=== PATIENT | female | born 1990 | race Caucasian/White ===

== ENCOUNTER 2017-06-18 21:03 | Inpatient (IN) | payer OTHER ==
[~2017-06-18] VITALS: Ht 162.6 cm; Wt 73.5 kg
[2017-06-18] MEDS ORDERED: LACTATED RINGER'S 1000ML 1,000 ML IV PRN (21:41)
[2017-06-18] MEDS ORDERED: PATIENT'S ALLERGY INFO NEEDS ENTERED SCH (22:00)
[2017-06-18 22:14] LABS: HEMOGLOBIN 13.2 g/dL (12.0-16.0); MEAN CELL VOLUME 90.7 fL (80-100); MEAN CORPUSCULAR HEMOGLOBIN 31.5 pg (25-34); MEAN CORPUSCULAR HGB CONC 34.7 g/dl (32-36); MEAN PLATELET VOLUME 10.8 fL (7.4-10.4); PLATELET COUNT 192 K/uL (130-400); RED CELL DISTRIBUTION WIDTH CV 13.6 % (11.5-14.5); RED CELL DISTRIBUTION WIDTH SD 44.6 fL (36.4-46.3); WHITE BLOOD COUNT 12.77 K/uL (4.8-10.8)
[2017-06-18] MEDS ORDERED: CHOL1000 PO (22:28)
[2017-06-18] MEDS ORDERED: PRENTAB26 PO (22:28)
[2017-06-18 22:30] VITALS: Ht 162.6 cm; Wt 73.5 kg
[2017-06-18 22:32] LABS: ALBUMIN 2.9 gm/dl (3.4-5.0); CALCIUM 8.9 mg/dl (8.5-10.1); CREATININE 0.99 mg/dl (0.60-1.20)
[2017-06-18 22:34] LABS: TOTAL PROTEIN 6.4 gm/dl (6.4-8.2)
[2017-06-18] MEDS ORDERED: LACTATED RINGER'S 1000ML 500 ML IV PRN (23:35)
[2017-06-18] MEDS ORDERED: OXYTOCIN 30 UNITS/500ML NSS IV PRN (23:45)
[2017-06-19] VITALS (7 sets, daily range): BP systolic 135–152; BP diastolic 81–91; PULSE 69; TEMP 36.7–36.8; O2SAT 96–97
[2017-06-19] MEDS: LACTATED RINGER'S 1000ML 1,000 ML IV SCH ×3 (02:16→12:48)
[2017-06-19] MEDS ORDERED: BUPIVACAINE 0.25% 30 ML VIAL ONE (03:32)
[2017-06-19] MEDS ORDERED: EpHEDrine SULFATE INJ 50 MG/ML AMP ONE (03:32)
[2017-06-19] MEDS ORDERED: FENTANYL 2MCG/ML ROPIV 1.25MG/ML 100ML BAG EPI ONE (03:33)
[2017-06-19] MEDS ORDERED: FENTANYL CITRATE INJ 50 MCG/1 ML 2 ML VIAL ONE (03:33)
[2017-06-19] MEDS ORDERED: LACTATED RINGER'S 1000ML 500 ML IV PRN (04:10)
[2017-06-19] MEDS ORDERED: NALOXONE HCL INJ 1 MG in SODIUM CHLORIDE 0.9% 1000ML 1,000 ML IV PRN ×4 (04:10)
[2017-06-19] MEDS ORDERED: PROMETHAZINE HCL INJ 25 MG in SODIUM CHLORIDE 0.9% 50ML 50 ML IV PRN (04:15)
[2017-06-19] MEDS ORDERED: NALBUPHINE HCL INJ 10 MG/ML AMP IV PRN (04:15)
[2017-06-19] MEDS ORDERED: EpHEDrine SULFATE INJ 50 MG/ML AMP IV PRN (04:15)
[2017-06-19] MEDS ORDERED: DiphenhydrAMINE HCL 50 MG/ML VIAL IV PRN (04:15)
[2017-06-19] MEDS ORDERED: ONDANSETRON INJ 2 MG/ML 2 ML VIAL IV PRN (04:15)
[2017-06-19] MEDS ORDERED: NALOXONE HCL INJ 0.4 MG/1 ML VIAL/CARP IV PRN (04:15)
[2017-06-19] MEDS ORDERED: CEFOXITIN IV 2,000 MG in DEXTROSE 5% 50ML 50 ML IV SCH (06:00)
[2017-06-19] MEDS: FENTANYL 2MCG/ML ROPIV 1.25MG/ML 100ML BAG EPI PRN ×2 (06:59→10:33)
[2017-06-19] MEDS ORDERED: OXYTOCIN INJ 10 UNITS/ML VIAL ONE ×6 (14:26→15:08)
[2017-06-19] MEDS ORDERED: LIDOCAINE/EPINEPHRINE 2% 1:200,000 20 ML SDV ONE (14:26)
[2017-06-19] MEDS ORDERED: MoRPHine SULFATE PF 1 MG/ML 10 ML AMP/VIAL ONE (14:27)
[2017-06-19] MEDS ORDERED: CITRIC ACID/SODIUM CITRATE 15 ML UDC PO ONE (14:30)
[2017-06-19] MEDS ORDERED: LACTATED RINGER'S 1000ML 1,000 ML IV SCH (14:30)
[2017-06-19] MEDS ORDERED: MoRPHine SULFATE PF 1 MG/ML 10 ML AMP/VIAL EPI PRN (15:00)
[2017-06-19] MEDS ORDERED: OXYTOCIN INJ 10 UNITS/ML VIAL IM ONE (15:04)
[2017-06-19] MEDS ORDERED: ONDANSETRON INJ 2 MG/ML 2 ML VIAL ONE (15:09)
[2017-06-19] MEDS ORDERED: METOCLOPRAMIDE HCL INJ 5 MG/ML 2 ML VIAL ONE (15:09)
[2017-06-19] MEDS ORDERED: MISOPROSTOL 200 MCG TAB ONE (15:43)
--- NOTE | 2017-06-19 15:57 | Anesthesiology Progress Note ---
Anesthesia Post Op Note Date & Time Jun 19, 2017 at 15:56 Vital Signs Pain Intensity: 1.0 Notes Mental Status: alert / awake / arousable, participated in evaluation Pt Amnestic to Procedure: Yes Nausea / Vomiting: adequately controlled Pain: adequately controlled Airway Patency, RR, SpO2: stable & adequate BP & HR: stable & adequate Hydration State: stable & adequate Neuraxial Anesthesia: was administered, sensory block is resolving Anesthetic Complications: no major complications apparent
--- NOTE | 2017-06-19 15:58 | Anesthesia Procedure Note ---
Anesthesia Epidural Removal Nt Date & Time Jun 19, 2017 at 15:58 Vital Signs Pain Intensity: 1.0 Notes Mental Status: alert / awake / arousable, participated in evaluation Nausea / Vomiting: adequately controlled Pain: adequately controlled Airway Patency, RR, SpO2: stable & adequate BP & HR: stable & adequate Hydration State: stable & adequate Neuraxial Anesthesia: was administered Anesthetic Complications: no major complications apparent, pt satisfied with anesthetic care Epidural: removed without complications, with tip intact
[2017-06-19] MEDS ORDERED: CONTINUE MEDICATION ONE (16:00)
[2017-06-19] MEDS ORDERED: LORAZEPAM 1 MG TAB PO PRN (16:00)
[2017-06-19] MEDS ORDERED: NO NARCOTICS OR SEDATIVES SCH (16:00)
[2017-06-19] MEDS ORDERED: DC INTRASPINAL MORPHINE PRN (16:00)
[2017-06-19] MEDS ORDERED: MoRPHine SULFATE 2 MG/ML CARP IV PRN (16:00)
--- NOTE | 2017-06-19 16:13 | [facility] Post Operative Brief Note ---
Immediate Operative Summary Operative Date Jun 19, 2017. Pre-Operative Diagnosis Failure to descend. Post-Operative Diagnosis Same Procedure(s) Performed Primary low transverse section. Surgeon Dr. Sahni Nursing Services Manager Surgeon(s) Dr. Barroso Estimated Blood Loss 700 Findings Consistent with Post-Op Diagnosis dictated Fluids (cc crystalloids) 1600 Specimens A. Placenta - Exam B. Cord blood C. Arterial and venous cord blood Drains None Anesthesia Type L&D Only EPID Exist Complication(s) none Disposition Disposition: L&D ( )
[2017-06-19] MEDS ORDERED: LANOLIN OINT EXT PRN (16:15)
[2017-06-19] MEDS ORDERED: SUPERCREAM 0.870 % 15GM JAR EXT PRN (16:15)
[2017-06-19] MEDS ORDERED: BENZOCAINE 20% AER SPR 82.5 GM CAN EXT PRN (16:15)
[2017-06-19] MEDS ORDERED: DC PCA PRN (16:15)
[2017-06-19] MEDS ORDERED: HYDROCORTISONE ACETATE 25 MG SUPP PR PRN (16:15)
[2017-06-19] MEDS ORDERED: MAGNESIUM HYDROXIDE SUSP 30 ML UDC PO PRN (16:15)
[2017-06-19] MEDS ORDERED: MISOPROSTOL 200 MCG TAB PO STA (16:24)
[2017-06-19] MEDS: SIMETHICONE 80 MG CHEW PO SCH ×2 (16:25→20:00)
[2017-06-19] MEDS: KETOROLAC TROMETHAMINE 30 MG/ML VIAL IV. PRN ×2 (16:29→23:48)
[2017-06-19] MEDS: OXYTOCIN INJ 20 UNITS in LACTATED RINGER'S 1000ML 1,000 ML IV SCH (17:16)
[2017-06-19] MEDS: DOCUSATE SODIUM 100 MG CAP PO SCH (20:00)
--- NOTE | 2017-06-19 20:09 | OPERATIVE REPORT ---
DATE OF OPERATION: 06/19/2017 SECTION NOTE INDICATION FOR PROCEDURE: This is a 27-year-old G1, P0 who presented to labor and delivery after spontaneous rupture of membrane at 1900 hours on 06/18/2017. The patient was admitted and eventually started on Pitocin for augmentation. She went on to be fully dilated at around 1000 hours on 06/19/2017. Upon vaginal exam, scalp was at a high station. She was made to labor down. She labored down and began to push. She pushed for over 3 hours and had an arrest of descent at 2+ station. heart rate changed from category 1 to category 2 with occasional decelerations. Decision was therefore made to perform section. The patient agreed, consent was obtained and patient was sent to the operating room where she underwent a primary section. PREOPERATIVE DIAGNOSES: 1. Failure to descend. 2. Cephalopelvic disproportion. 3. Poor testing. POSTOPERATIVE DIAGNOSES: Same. PROCEDURE: Primary low transverse section. SURGEON: Dr. aShni. SUPERVISOR STAGE CARPENTRY: Dr. Barroso. ESTIMATED BLOOD LOSS: 300 mL. URINE OUTPUT: Around 50 mL clear urine at end of the procedure. INTRAVENOUS FLUIDS: 1600 mL. FINDINGS: The uterus, tubes, and ovary appeared grossly normal. The pelvis was unremarkable. was in occiput posterior presentation. Infant's head was wedged deep in the pelvis. There was no nuchal cord, there was terminal meconium; however. The rest of the abdominal and pelvic exam was unremarkable. SPECIMEN: 1. Placenta. 2. Cord gas. 3. Cord blood. DRAINS: Perez catheter. ANESTHESIA: Epidural. COMPLICATIONS: None. DISPOSITION: Stable to recovery room. DESCRIPTION OF PROCEDURE: The patient was taken to the operating where she was prepped and draped in normal sterile fashion in dorsal lithotomy position. After a time-out was called, a Pfannenstiel incision was made with a scalpel and carried down to the fascia. Fascia was incised in the midline and extended laterally on both sides. The rectus abdominus muscle was sharply dissected off the fascia. Peritoneum was identified and entered sharply. Once inside the abdomen, an Juan Luis retractor was placed in the abdomen for retraction. The vesicouterine peritoneum was sharply dissected off the lower segment of the uterus. A low transverse incision was made on the uterus and extended laterally on both sides using bandage scissors. 's head was wedged deep in the pelvis, this was reduced and the infant delivered. There was no nuchal cord. There was terminal meconium. Infant was delivered. Cord was clamped and cut. was handed over to the awaiting pediatric team. 's weight and Apgars in the pediatric records. Cord blood and cord gas were obtained. Placenta was manually removed. The uterus was exteriorized and cleared of all clots and debris. Uterus was closed in layers using 0 Vicryl, this was closed in 2 layers. There was good hemostasis at end of the repair. Copious amount of irrigation was used to irrigate the abdomen and pelvis at this point. The uterus was returned into the abdominal cavity and once again inspection of the uterine incision site showed good hemostasis. The Juan Luis retractor was removed and the peritoneum closed in a running fashion using plain suture. Rectus abdominis muscle was reapproximated using plain suture in a [id number] fashion. The fascia was closed in a running fashion using Vicryl stitch. SubQ space was closed with plain suture and skin was closed with 4-0 Monocryl. All instruments were removed from the abdomen and accounted for x2. There was good hemostasis at time of closure. The patient was sent to recovery in stable condition. I attest to the content of the Intraoperative Record and any orders documented therein. Any exception s are noted below.
[2017-06-20] VITALS (14 sets, daily range): BP systolic 122–136; BP diastolic 75–84; PULSE 71–102; TEMP 36.6–36.9; O2SAT 95–99
[2017-06-20] MEDS: OXYTOCIN INJ 20 UNITS in LACTATED RINGER'S 1000ML 1,000 ML IV SCH (02:51)
[2017-06-20] MEDS: PRENATAL VITAMIN TAB PO SCH (08:00)
[2017-06-20] MEDS: DOCUSATE SODIUM 100 MG CAP PO SCH ×2 (08:01→19:42)
[2017-06-20] MEDS: FERROUS SULFATE 325 MG TAB PO SCH (08:01)
[2017-06-20] MEDS: SIMETHICONE 80 MG CHEW PO SCH ×4 (08:01→19:42)
[2017-06-20] MEDS: KETOROLAC TROMETHAMINE 30 MG/ML VIAL IV. PRN (08:02)
[2017-06-20 08:48] LABS: BASO % 0.1 %; BASO ABS # 0.02 K/uL (0-0.2); EOS % 0.6 %; EOS ABS # 0.12 K/uL (0-0.5); HEMATOCRIT 34.3 % (37-47); HEMOGLOBIN 11.7 g/dL (12.0-16.0); LYMPH % 9.2 %; LYMPH ABS # 1.75 K/uL (1.2-3.4); MEAN CELL VOLUME 91.5 fL (80-100); MEAN CORPUSCULAR HEMOGLOBIN 31.2 pg (25-34); MEAN CORPUSCULAR HGB CONC 34.1 g/dl (32-36); MEAN PLATELET VOLUME 10.6 fL (7.4-10.4); MONO ABS # 1.32 K/uL (0.11-0.59); NEUT % 82.6 %; NEUT ABS # 15.66 K/uL (1.4-6.5); PLATELET COUNT 150 K/uL (130-400); RED CELL DISTRIBUTION WIDTH CV 13.7 % (11.5-14.5); RED CELL DISTRIBUTION WIDTH SD 45.1 fL (36.4-46.3); WHITE BLOOD COUNT 18.97 K/uL (4.8-10.8)
--- NOTE | 2017-06-20 09:40 | Surgery Progress Note ---
Surgery Progress Note Date of Service Jun 20, 2017. Subjective Post OP Day: 1 + feeling well, + ambulating, + flatus, + pain controlled, + diet Objective Vital Signs: Date Time Temp Pulse Resp B/P (MAP) Pulse Ox O2 Delivery O2 Flow Rate FiO2 06/20/17 06:15 18 96 06/20/17 05:15 18 97 06/20/17 04:45 36.8 72 18 132/78 (96) 97 Room Air 06/20/17 04:15 18 96 06/20/17 03:15 18 97 06/20/17 02:15 16 96 06/20/17 00:15 18 97 06/19/17 23:45 97 Room Air 06/19/17 23:45 36.8 69 18 152/91 (111) 97 Room Air 06/19/17 23:15 18 96 06/19/17 22:15 18 97 06/19/17 21:15 16 97 06/19/17 20:15 18 96 06/19/17 19:15 18 96 06/19/17 19:05 96 Room Air 06/19/17 19:05 36.7 69 18 135/81 (99) 96 Room Air Abdomen: non tender, non distended, soft Incision(s): clean, dry, intact Extremities: non-tender, normal inspection, no pedal edema Laboratory Results: Results Past 24 Hours Test 06/20/17 08:28 Range/Units White Blood Count 18.97 4.8-10.8 K/uL Red Blood Count 3.75 4.2-5.4 M/uL Hemoglobin 11.7 12.0-16.0 g/dL Hematocrit 34.3 37-47 % Mean Corpuscular Volume 91.5 80-100 fL Mean Corpuscular Hemoglobin 31.2 25-34 pg Mean Corpuscular Hemoglobin Concent 34.1 32-36 g/dl Platelet Count 150 130-400 K/uL Mean Platelet Volume 10.6 7.4-10.4 fL Neutrophils (%) (Auto) 82.6 % Lymphocytes (%) (Auto) 9.2 % Monocytes (%) (Auto) 7.0 % Eosinophils (%) (Auto) 0.6 % Basophils (%) (Auto) 0.1 % Neutrophils # (Auto) 15.66 1.4-6.5 K/uL Lymphocytes # (Auto) 1.75 1.2-3.4 K/uL Monocytes # (Auto) 1.32 0.11-0.59 K/uL Eosinophils # (Auto) 0.12 0-0.5 K/uL Basophils # (Auto) 0.02 0-0.2 K/uL RDW Standard Deviation 45.1 36.4-46.3 fL RDW Coefficient of Variation 13.7 11.5-14.5 % Immature Granulocyte % (Auto) 0.5 % Immature Granulocyte # (Auto) 0.10 0.00-0.02 K/uL Assessment & Plan regular diet ambulate POD#1 may shower and increase activity
[2017-06-20] MEDS ORDERED: OXYCODONE/ACETAMINOPHEN 5-325 TAB PO PRN (11:00)
[2017-06-20] MEDS ORDERED: DiphenhydrAMINE HCL 50 MG/ML VIAL IV PRN (11:00)
[2017-06-20] MEDS ORDERED: ONDANSETRON INJ 2 MG/ML 2 ML VIAL IV PRN (11:00)
[2017-06-20] MEDS ORDERED: PROMETHAZINE HCL INJ 25 MG in SODIUM CHLORIDE 0.9% 50ML 50 ML IV PRN (11:00)
[2017-06-20] MEDS ORDERED: ZOLPIDEM TARTRATE 5 MG TAB PO PRN (11:00)
[2017-06-20] MEDS: OXYCODONE/ACETAMINOPHEN 5-325 TAB PO PRN ×2 (13:26→19:02)
[2017-06-20] MEDS: IBUPROFEN 600 MG TAB PO PRN ×2 (13:26→19:02)
[2017-06-20] MEDS ORDERED: BISACODYL 5 MG TABEC PO ONE (22:00)
[2017-06-21] VITALS: BP 129/80; PULSE 72; TEMP 36.8
[2017-06-21] MEDS: IBUPROFEN 600 MG TAB PO PRN ×5 (00:08→20:42)
[2017-06-21] MEDS: OXYCODONE/ACETAMINOPHEN 5-325 TAB PO PRN ×5 (00:08→20:42)
[2017-06-21 07:08] LABS: HEMATOCRIT 30.3 % (37-47); HEMOGLOBIN 10.1 g/dL (12.0-16.0)
[2017-06-21] MEDS: PRENATAL VITAMIN TAB PO SCH (08:36)
[2017-06-21] MEDS: DOCUSATE SODIUM 100 MG CAP PO SCH ×2 (08:36→20:42)
[2017-06-21] MEDS: SIMETHICONE 80 MG CHEW PO SCH ×4 (08:36→20:42)
[2017-06-21] MEDS: FERROUS SULFATE 325 MG TAB PO SCH (08:36)
[2017-06-21 08:40] VITALS: BP 132/83; PULSE 82; TEMP 36.5
--- NOTE | 2017-06-21 09:18 | Surgery Progress Note ---
Surgery Progress Note Date of Service Jun 21, 2017. Subjective Post OP Day: 2 + feeling well, + ambulating, + flatus, + pain controlled, + diet (tolerating PO food and meds), No complaints, No chest pain, No SOB, No bowel movement, No using UNMANNED EQUIPMENT OPERATOR, No nausea, No vomiting Objective Vital Signs: Date Time Temp Pulse Resp B/P (MAP) Pulse Ox O2 Delivery O2 Flow Rate FiO2 06/21/17 00:00 Room Air 06/21/17 00:00 36.8 72 18 129/80 (96) Room Air 06/20/17 15:30 99 Room Air 06/20/17 15:30 36.9 94 18 122/81 (95) 99 Room Air 06/20/17 11:10 36.8 102 18 127/75 (92) 97 Room Air 06/20/17 10:15 16 96 General Appearance: WD/WN, no apparent distress Head: normocephalic, atraumatic Neck: supple, no adenopathy, thyroid normal, no JVD, no carotid bruits, trachea midline Respiratory/Chest: chest non-tender, lungs clear, normal breath sounds, no respiratory distress, no accessory muscle use Cardiovascular: regular rate, rhythm, no edema, no gallop, no JVD, no murmur Abdomen: normal bowel sounds, non tender, non distended, soft, no organomegaly , no pulsatile mass Incision(s): clean, dry, intact, no erythema, no drainage Laboratory Results: Results Past 24 Hours Test 06/21/17 06:22 Range/Units Hemoglobin 10.1 12.0-16.0 g/dL Hematocrit 30.3 37-47 % Assessment & Plan c/sec day #2 pt doing well anticipate disch tomorrow
[2017-06-21 15:00] VITALS: BP 144/84; PULSE 101; TEMP 36.7
[2017-06-21] MEDS ORDERED: BISACODYL 10 MG SUPP PR PRN (16:15)
--- NOTE | 2017-06-21 19:28 | DISCHARGE SUMMARY ---
DATE OF ANTICIPATED DISCHARGE: 06/22/2017 CHIEF COMPLAINT: 1. at term. 2. Premature rupture of membranes. HISTORY OF PRESENT ILLNESS: This is a 27-year-old G1, P0, who presented to labor and delivery after spontaneous rupture of membranes at 1900 on 06/18/2017. She was admitted and eventually started on Pitocin for labor augmentation. She went on to be fully dilated at around 1000 on 06/19/2017. The patient pushed for several hours, there was no change in station. heart tracing went from category 1 to category 2. The patient, therefore, underwent primary section for poor testing as well as failure to descend. Surgery was unremarkable. The patient did well, delivered a live female , Apgars 8 and 9. Details of surgery and baby are in the respective records. The patient met all milestones in recovery. On postop day #1, the patient did well. She was able to tolerate p.o. food and meds. On postop day #2, she continued to improve. Her diet was advanced. The patient will be discharged home on the morning of 06/22/2017. PAST MEDICAL HISTORY: None. PAST SURGICAL HISTORY: The patient has had some dental surgery in the past. SOCIAL HISTORY: The patient denies tobacco, drug or alcohol use. ALLERGIES: No known drug allergies. FAMILY HISTORY: Noncontributory. REVIEW OF SYSTEMS: Negative except as dictated in the HPI. PHYSICAL EXAMINATION: VITAL SIGNS: On 06/21/2017, temperature is 36.8, pulse is 72, blood pressure is 129/80.HEART: S1, S2, regular rhythm and rate. LUNGS: Clear to auscultation bilaterally. No wheezes, crackles or rales. ABDOMEN: Nontender, nondistended, positive bowel sounds. Incision is clean, dry and intact. EXTREMITIES: No cyanosis, clubbing or edema. LABORATORY DATA: On 06/21/2017 showed hemoglobin of 10.1, hematocrit of 30.3. CONDITION ON DISCHARGE: Stable. OPERATION: Primary section. DIAGNOSIS: Postop primary section. PLAN ON DISCHARGE: The patient will be discharged home tomorrow, 06/22/2017, with instructions regarding activity, diet, followup appointment and medication.
[2017-06-21 23:35] VITALS: BP 121/80; PULSE 82; TEMP 36.6; O2SAT 98
[2017-06-22] MEDS: IBUPROFEN 600 MG TAB PO PRN ×2 (03:42→09:05)
[2017-06-22] MEDS: OXYCODONE/ACETAMINOPHEN 5-325 TAB PO PRN ×2 (03:42→09:05)
[2017-06-22 07:45] VITALS: BP 142/84; PULSE 70; TEMP 36.6
--- NOTE | 2017-06-22 08:05 | Surgery Progress Note ---
Surgery Progress Note Date of Service Jun 22, 2017. Subjective Post OP Day: 2 + feeling well, + ambulating, + flatus, + pain controlled, + diet (Tolerating Po food and Meds), No complaints, No chest pain, No SOB, No bowel movement, No using PRECISION HONER, No nausea, No vomiting Objective Vital Signs: Date Time Temp Pulse Resp B/P (MAP) Pulse Ox O2 Delivery O2 Flow Rate FiO2 06/21/17 23:35 98 Room Air 06/21/17 23:35 36.6 82 20 121/80 (94) 98 Room Air 06/21/17 15:00 36.7 101 18 144/84 (104) Room Air 06/21/17 15:00 Room Air 06/21/17 08:40 Room Air 06/21/17 08:40 36.5 82 18 132/83 (99) Room Air General Appearance: WD/WN, no apparent distress Head: normocephalic, atraumatic Neck: supple, no adenopathy, thyroid normal, no JVD, no carotid bruits, trachea midline Respiratory/Chest: chest non-tender, lungs clear, normal breath sounds, no respiratory distress, no accessory muscle use Cardiovascular: regular rate, rhythm, no edema, no gallop, no JVD, no murmur Abdomen: normal bowel sounds, non tender, non distended, soft, no organomegaly , no pulsatile mass Incision(s): clean, dry, intact, no erythema, no drainage Extremities: normal range of motion, non-tender, normal inspection, no pedal edema, no calf tenderness, normal capillary refill, pelvis stable Assessment & Plan c/sec day #2 pt doing well disch home with instructions c/sec day #2 pt doing well anticipate disch tomorrow
[2017-06-22] MEDS ORDERED: FRRS300 PO (08:07)
[2017-06-22] MEDS ORDERED: OXYC-57 PO (08:07)
[2017-06-22] MEDS ORDERED: MTR600X PO (08:07)
--- NOTE | 2017-06-22 08:08 | Discharge Instructions ---
Discharge Instructions Date of Service Jun 22, 2017. Admission Reason for Admission: Check Rupture Discharge Discharge Diagnosis / Problem: postop Discharge Goals Goal(s): Routine recovery after Activity Recommendations Activity Limitations: as noted below ACTIVITY RECOMMENDATIONS: * Gradual return to full activity over the next 2-3 weeks. * No lifting - nothing heavier than baby over the next 2-3 weeks. * Do not engage in vigorous exercise, sexual activity or sports until cleared by your physician. * Do not drive or operate any motorized equipment until cleared by your physician. * You may shower/bathe daily. BREAST CARE: If you are not breast feeding: * Wear a supportive bra 24 hours a day for one to two weeks. * Avoid stimulating your breasts and nipples as much as possible during the first few weeks after delivery. * When taking a shower, have the warm water hit your back, not breasts. * When your breasts feel full, apply ice packs. Usually three to four times a day helps ease the discomfort. * Take a mild pain medication (Tylenol/Motrin) when you are uncomfortable. If breast feeding: * Use breast milk to lubricate nipples. Lansinoh cream may be used for sore nipples. You do not need to remove cream prior to breast feeding. If using a different brand of cream, check the label for directions regarding removal of cream prior to nursing. * Wear a supportive bra. * If having problems with breasts or breast feeding, call a consumer services consultant or your health care provider. OVER THE COUNTER MEDICATION: * For discomfort or pain, you may use Acetaminophen (Tylenol), Ibuprofen (Advil ), or Naproxen (Aleve) following the package directions. * For constipation you may use Colace following the package directions. SPECIAL CARE INSTRUCTIONS: When you are discharged from the hospital, it is important for you to follow the instructions listed below: * During the first week at home, you should be able to care for yourself and your baby. In addition, the usual light household activities are encouraged. * Limit your activities to the way you feel. Do not try to clean the house or move furniture. Be sensible. * If you actively engage in sports and have done so up until the time of your delivery, you may resume these activities as soon as you feel able. This may take up to one month or even longer. Use good judgment. * Continue to take your vitamins for at least six weeks after the of your baby. * Your diet need not be limited unless you were on a special diet before your delivery. Breast-feeding mothers need around 2500 calories per day and at least 64-80 ounces of fluid per day (8 to 10 glasses). * You should eat foods from the four major food groups. Crash diets or fad diets are to be avoided. Eating lean meats, fresh fruits and vegetables, low-fat dairy products, high fiber foods and a regular exercise program, will help you get back to your pre- weight without putting your health at risk. * Constipation is sometimes a problem after delivery. Take a mild laxative as needed. If breast feeding, Milk of Magnesia is acceptable to use. You may use a suppository or Fleets enema if no episiotomy. * A daily shower or tub bath is suggested. Be sure to thoroughly and gently dry the perineum. * A bloody vaginal discharge will usually continue until around four weeks post . A small amount of bleeding may continue for as long as six weeks. Vaginal discharge changes from the bright red bleeding after delivery to pink then brownish and finally yellowish-pink before becoming white and disappearing. * Bleeding may increase with activity. Your first period may come in 4-8 weeks. If you are breast feeding, your period may be delayed even longer. * [place] (sex) can begin whenever both you and your partner feel comfortable and do not have any form of genital infection. It is recommended that you wait at least six weeks for internal and external healing to occur. If you have questions, please talk to your health care practitioner. A condom should be used to prevent infection and . * Foreplay, gentle intercourse and lubrication is very important the first several times to prevent pain. A water-based lubricant such as K-Y jelly or Astroglide may be used. * Tampons and/or Douching should be avoided until after six weeks check-up. * If you have RH negative blood and your baby is RH positive, you will receive RHOGAM by injection prior to discharge. The nurse will give you a card to keep with you that has the date and place that you received RHOGAM after delivery. * During your care, you had a Rubella screen done to check for the presence of rubella antibodies in your blood. If your test was negative, you will receive a Rubella vaccine prior to discharge. This vaccine may cause a fever, soreness at the injection site and flu-like symptoms. If these symptoms persist, notify your health care practitioner. is not advised for three months after a Rubella vaccine. * Verbalizes understanding of car seat law as reviewed with patient nursing. * Car Seat hand-out given and reviewed with patient by nursing. * Shaken baby information reviewed with patient by nursing. Call you doctor if: * Heavy bleeding (saturating several pads an hour) or passing clots the size of your fist. * A fever >101 degrees F (38.3 degrees C) on two occasions four hours apart and /or chills. * Unusual pain in the pelvic or vaginal areas. Pain should improve each day . * Call the doctor for any increased redness, drainage or swelling around the incision and any pain unrelieved by prescribed pain medication. * Any signs or symptoms of phlebitis (possible blood clots forming in the veins ): leg pain, warm, red or swollen area on leg. * "Baby Blues" lasting longer than two weeks. If you have any questions or concerns, call your health care practitioner at . FOLLOW-UP VISIT: * Incision check (staple removal) in 1 week. Please call doctor's office at to set up appointment. * Please call the office at to schedule a 6 week examination. It is important you keep this appointment. * It is important for you to make arrangements for either yearly or twice yearly check-ups thereafter. . Current Hospital Diet Patient's current hospital diet: Regular OB Diet Discharge Diet Recommended Diet: Regular Diet Procedures Procedures Performed: Primary low transverse section. Pending Studies Studies pending at discharge: no Medical Emergencies . Who to Call and When: Medical Emergencies: If at any time you feel your situation is an emergency, please call [phone] immediately. . Non-Emergent Contact Non-Emergency issues call your: Specialist . . "Provider Documentation" section prepared by Mj Sahni. .
[2017-06-22] MEDS: FERROUS SULFATE 325 MG TAB PO SCH (09:04)
[2017-06-22] MEDS: DOCUSATE SODIUM 100 MG CAP PO SCH (09:04)
[2017-06-22] MEDS: SIMETHICONE 80 MG CHEW PO SCH (09:04)
[2017-06-22] MEDS: PRENATAL VITAMIN TAB PO SCH (09:04)
[2017-06-22 09:50] VITALS: BP_DIAS 84; PULSE 70; TEMP 36.6
== END 2017-06-22 10:15 | disposition home or self-care (01) | DRG 766 ==
LOC: C.LD 21:03 → C.OPB 21:03 → C.LD 21:45 → C.OPB 21:45 → C.OBG 06-19 19:44
PROVIDERS: ADMIT Obstetrics & Gynecology; ATTEND Obstetrics & Gynecology
PROC: 10D00Z1 Extraction of Products of Conception, Low, Open Approach (ICD-10-PCS; principal; 2017-06-19 14:20)
DX: O65.4 Obstructed labor due to fetopelvic disproportion, unspecified (principal); O64.0XX0 Obstructed labor due to incomplete rotation of fetal head, not applicable or unspecified; O76 Abnormality in fetal heart rate and rhythm complicating labor and delivery; O75.81 Maternal exhaustion complicating labor and delivery; O42.02 Full-term premature rupture of membranes, onset of labor within 24 hours of rupture; O77.0 Labor and delivery complicated by meconium in amniotic fluid; Z3A.40 40 weeks gestation of pregnancy; Z37.0 Single live birth

== ENCOUNTER 2019-10-19 05:34 | Inpatient (IN) ==
[2019-10-19] MEDS ORDERED: LACTATED RINGER'S 1,000 ML IV SCH ×2 (05:45→10:54)
[2019-10-19] MEDS ORDERED: CITRIC ACID/SODIUM CITRATE 15 ML UDC PO SCH (06:00)
[2019-10-19] MEDS ORDERED: CEFAZOLIN 2000MG 2,000 MG/15 ML SYR IV SCH (06:00)
[2019-10-19 06:13] LABS: Basophils # (auto) 0.03 K/uL (0-0.2); Basophils % (auto) 0.3 %; Eosinophils # (auto) 0.23 K/uL (0-0.5); Eosinophils % (auto) 2.1 %; Hematocrit (blood only) 35.1 % (37-47); Hemoglobin 11.9 g/dL (12.0-16.0); Immature Granulocytes # (auto) 0.05 K/uL (0.00-0.02); Immature Granulocytes % (auto) 0.5 %; Lymphocytes # (auto) 1.87 K/uL (1.2-3.4); Lymphocytes % (auto) 17.3 %; Mean Corpuscular Hemoglobin 30.9 pg (25-34); Mean Corpuscular Volume 91.2 fL (80-100); Monocytes # (auto) 1.08 K/uL (0.11-0.59); Neutrophils # (auto) 7.52 K/uL (1.4-6.5); Neutrophils % (auto) 69.8 %; Platelet Count 194 K/uL (130-400); RDW Coefficient of Variation 13.2 % (11.5-14.5); RDW Standard Deviation 43.7 fL (36.4-46.3); Red Blood Count 3.85 M/uL (4.2-5.4); White Blood Count 10.78 K/uL (4.8-10.8)
[2019-10-19 06:17] LABS: Mean Corpuscular Hgb Conc 33.9 g/dL (32-36)
[2019-10-19] MEDS ORDERED: OXYTOCIN 10 UNITS/ML VIAL ONE ×3 (06:52→06:53)
[2019-10-19] MEDS ORDERED: fentaNYL citrate 100 MCG/2 ML VIAL ONE (06:53)
[2019-10-19] MEDS ORDERED: MoRPHine SULFATE PF 1 MG/ML 10 ML AMP/VIAL ONE (06:53)
[2019-10-19] MEDS ORDERED: NALBUPHINE HCL INJ 10 MG/ML AMP IV PRN (07:11)
[2019-10-19] MEDS ORDERED: NALOXONE HCL 0.4 MG/1 ML VIAL/CARP IV PRN (07:11)
[2019-10-19] MEDS ORDERED: NALOXONE HCL 0.08 MG in SYRINGE 1.8 ML IV PRN (07:11)
[2019-10-19] MEDS ORDERED: ONDANSETRON INJ 2 MG/ML 2 ML VIAL IV PRN (07:11)
[2019-10-19] MEDS ORDERED: ePHEDrine sulfate 50 MG/ML AMP IV PRN (07:11)
[2019-10-19] MEDS ORDERED: LACTATED RINGER'S 500 ML IV PRN (07:11)
[2019-10-19] MEDS ORDERED: PROMETHAZINE HCL 25 MG in SODIUM CHLORIDE 0.9% 50 ML IV PRN (07:11)
[2019-10-19] MEDS ORDERED: DiphenhydrAMINE HCL 50 MG/ML VIAL IV PRN (07:11)
[2019-10-19] MEDS ORDERED: NALOXONE HCL 1 MG in SODIUM CHLORIDE 0.9% 1000ML 1,000 ML IV PRN (07:11)
[2019-10-19] MEDS ORDERED: MoRPHine SULFATE 2 MG/ML CARP IV PRN (07:11)
[2019-10-19] MEDS ORDERED: MoRPHine SULFATE PF 1 MG/ML 10 ML AMP/VIAL INT SPINAL ONE (07:11)
--- NOTE | 2019-10-19 07:11 | Anesthesiology Consultation ---
Date of Service October 19, 2019 Assessment & Plan ASA ASA2 Proposed Anesthesia Anesthesia Type: Spinal Risk / Benefits Reviewed With: PT / POA / Parent / Guardian, Accepts Plan and Informed Consent Obtained History Surgery Operation Date: 10/19/19 07:30 Proposed Procedures p Section in LD - Roshan Barroso MD Height/Weight Height: 5 ft 3.5 in Weight: 64.864 kg Allergies Allergy/AdvReac Type Severity Reaction Status Date / Time No Known Allergies Allergy Verified 10/19/19 05:52 Medications Home Medications Medication Instructions Recorded Confirmed Last Taken PNV cmb#95-ferrous fumarate-FA 1 tab PO PM 10/13/19 10/19/19 10/18/19 08:00 [] Past Medical History Medical History No known health problems Exercise / Class Metabolic Activity II 4-5 Yardwork/Stairs/Walk up hill Past Surgical History Surgical History History of section History of tonsillectomy History of tooth extraction wisdom teeth Past Anesthesia History No Hx of Anesthesia Complications and No Family Hx of Anesthesia Complications History of PONV No Hx of PONV and No Hx of Motion Sickness Social History Smoking Status: Never smoker Do You Dip or Chew Tobacco: No Hx Alcohol Use: No Hx Substance Use: No substance use type: does not use Review of Systems denies fever/cough/ colds/ chest pain/ SOB/ MAIA Constitutional: no fever and no chills Respiratory: no cough and no dyspnea denies MAIA Cardiovascular: no chest pain and no dyspnea on exertion Physical Exam Vital Signs Last Vital Signs Temp 36.5 C 10/19/19 05:49 Pulse 70 10/19/19 05:49 Resp 18 10/19/19 05:49 BP 122/71 10/19/19 05:49 ENMT Mouth: no TMJ abnormality and no dentition abnormality Thyromental Distance: > or= 3.5 Finger Breadths Mallampati Class: II Neck neck extension not limited Respiratory normal respiratory effort; no respiratory distress Auscultation: lungs clear to auscultation bilaterally Cardiovascular Rate/Rhythm: regular rate and regular rhythm Neurologic moves all extremities Psychiatric Orientation: alert and oriented x 3 Testing Laboratory Results 10/19/19 06:01
[2019-10-19] MEDS ORDERED: NO NARCOTICS OR SEDATIVES SCH (07:15)
[2019-10-19] MEDS ORDERED: DC INTRASPINAL MORPHINE SCH (07:15)
[2019-10-19] MEDS ORDERED: SODIUM CHLORIDE 0.9% 1000ML 1,000 ML IV SCH (07:15)
--- NOTE | 2019-10-19 07:25 | History & Physical Bridge Note ---
Date of Service October 19, 2019 History & Physical Bridge Note I have examined the patient, reviewed the History & Physical and in the interval since the performance of the History & Physical I have noted the following changes of clinical significance: no changes noted
--- NOTE | 2019-10-19 07:30 | History & Physical Report ---
Date of Service October 19, 2019 History of Present Illness Primary Care Provider: Gurwinder Espinal Allergies Allergy/AdvReac Type Severity Reaction Status Date / Time No Known Allergies Allergy Verified 10/19/19 05:52 Home Medications Home Medications Medication Instructions Recorded Confirmed Type PNV cmb#95-ferrous fumarate-FA 1 tab PO PM 10/13/19 10/19/19 History [] Patient History Medical History No known health problems Surgical History History of section History of tonsillectomy History of tooth extraction wisdom teeth Social History Preferred Language: Serbian Communication Ability: Effective Marine Safety Officer Required: No Beliefs That Will Affect Care: None marital status: Current Living Situation: Family Current Living Situation Comment: lives with dad and his girlfriend, daughter Other Information That Helps Us Care for You: No Feels Safe at Home: Yes Safety Concerns: Feels Safe At This Time Smoking Status: Never smoker Do You Dip or Chew Tobacco: No ; Second Hand Exposure: Yes (father smokes) ; Tobacco Cessation Education Requested by Patient: No Hx Alcohol Use: No Hx Substance Use: No Physical Exam Constitutional: WD/WN, vitals as above ENMT: external ear and nose normal, oropharynx normal Respiratory: normal respiratory effort, lungs clear to auscultation Cardiovascular: RRR, no murmur, no edema Gastrointestinal (Abdomen): normal bowel sounds, soft, nontender, no hepatosplenomegaly Percussion/Palpation: abdomen soft Neurologic: patellar DTR's 2+ bilat, sensation intact Genitourinary: no vaginal lesions, no adnexal mass normal external appearance Speculum/Bimanual Exam: + uterus enlarged OB Exam Abdomen: + vertex OB Exam Monitor Tracing: + external FHT monitor used and + category I Results & Data Vital Signs (Past 12 Hours) Vital Signs Temp Pulse Resp BP 10/19/19 05:49 36.5 C 70 18 122/71 Code Status & VTE Plan VTE Prophylaxis Plan VTE Prophylaxis will be ordered: No Monitoring External Monitor FHT Cat 1
--- NOTE | 2019-10-19 08:59 | Post Operative Brief Note ---
Immediate Post Op Note v1 Date of Surgery October 19, 2019 Pre & Post Diagnosis Operation Date: 10/19/19 07:30 <No data on this case meets the specified criteria> term elective repeat section I identified the patient and participated in the time-out.: Yes Procedure e: 10/19/19 07:30 <No data on this case meets the specified criteria> Repeat low segment transverse Surgeon Roshan Barroso MD Feller Operator Gillian MCNALLY Estimated Blood Loss 300 Findings Consistent with Post-Op Diagnosis Live female Apgars 9/9 weight 7-1 Fluids LR Specimens Placenta cord blood Drains Perez Catheter Anesthesia Type Spinal Complications none Disposition Accompanied Patient To Recovery: Yes Disposition: L&D Overlapping Procedure I was present for: the critical portions of procedure. I was immediately available: during the entire case. Back up surgeon: was not required during procedure.
--- NOTE | 2019-10-19 09:22 | Anesthesiology Progress Note ---
Date of Service October 19, 2019 Anesthesia Post Procedure Vital Signs Vital Signs: Temp Pulse Resp BP Pulse Ox 10/19/19 09:20 59 L 115/75 10/19/19 09:19 58 L 100 10/19/19 09:14 60 100 10/19/19 09:11 63 112/75 10/19/19 08:58 66 114/65 10/19/19 05:49 36.5 C 70 18 122/71 Transfer of Care Handoff Completed per policy Notes Mental Status: alert / awake / arousable and participated in evaluation Patient Amnestic to Procedure: Yes Nausea / Vomiting: adequately controlled Pain: adequately controlled Airway Patency, RR, SpO2: stable & adequate BP & HR: stable & adequate Hydration State: stable & adequate Anesthetic Complications: no major complications apparent and Pt Satisfied with anesthetic care
[2019-10-19] MEDS: OXYTOCIN 20 UNITS in LACTATED RINGER'S 1,000 ML IV SCH ×2 (09:56→18:41)
[2019-10-19] MEDS ORDERED: SUPERCREAM 0.870% 15 GM JAR EXT PRN (10:54)
[2019-10-19] MEDS ORDERED: BENZOCAINE 20% AER SPR 82.5 GM CAN EXT PRN (10:54)
[2019-10-19] MEDS ORDERED: OXYTOCIN 20 UNITS in LACTATED RINGER'S 1,000 ML IV SCH (10:54)
[2019-10-19] MEDS ORDERED: HYDROCORTISONE ACETATE 25 MG SUPP PR PRN (10:54)
[2019-10-19] MEDS ORDERED: SENNA 8.6 MG TAB PO PRN (10:54)
[2019-10-19] MEDS ORDERED: MAGNESIUM HYDROXIDE SUSP 30 ML UDC PO PRN (10:54)
[2019-10-19] MEDS ORDERED: DIPHTHERIA/TETANUS/PERTUSSIS 0.5 ML SYR/VIAL IM ONE (10:54)
[2019-10-19] MEDS: KETOROLAC 30 MG/ML VIAL IV PRN ×2 (12:01→20:37)
[2019-10-19] MEDS: SIMETHICONE 80 MG CHEW PO SCH ×3 (15:04→20:38)
[2019-10-19] MEDS: LACTATED RINGER'S 500 ML IV ONE (15:49)
[2019-10-19] MEDS ORDERED: LACTATED RINGER'S 500 ML IV SCH (17:00)
[2019-10-19] MEDS: DOCUSATE SODIUM 100 MG CAP PO SCH (20:37)
[2019-10-19] MEDS: PRENATAL VITAMIN 1 TAB PO SCH (20:46)
[2019-10-19] MEDS: ACETAMINOPHEN 325 MG TAB PO SCH (23:00)
[2019-10-20] MEDS ORDERED: ONDANSETRON INJ 2 MG/ML 2 ML VIAL IV PRN (01:12)
[2019-10-20] MEDS ORDERED: DiphenhydrAMINE HCL 50 MG/ML VIAL IV PRN (01:12)
[2019-10-20] MEDS ORDERED: PROMETHAZINE HCL 25 MG in SODIUM CHLORIDE 0.9% 50 ML IV PRN (01:12)
--- NOTE | 2019-10-20 01:25 | Operative Report (OR) ---
DATE OF OPERATION: 10/19/2019 PREOPERATIVE DIAGNOSIS: Term elective repeat section. POSTOPERATIVE DIAGNOSIS: Term elective repeat section. PROCEDURE: Elective repeat section, low segment, transverse. SURGEON: Roshan Barroso MD SURGEON: DALI Ortiz. ANESTHESIA: Spinal. CLINICAL HISTORY: The patient is a 29 F para 1-0-0-1, admitted for an elective repeat section due to refusing trial of labor. The patient was identified. Timeout was called prior to the start of the procedure and Ancef 2 grams were then given prior to the start of the case. DESCRIPTION OF PROCEDURE: Under satisfactory spinal anesthesia, the patient was prepped and draped in the usual sterile fashion. A low Pfannenstiel incision through a prior scar was then made, carrying the incision down into the layers of the abdominal cavity in successive layers into the peritoneal cavity which was opened and expanded in the AP diameter. Metzenbaums were then used to sharply dissect the bladder flap. This was then gently pushed down with blunt dissection. Bladder blade was entered. A low segment transverse incision over the lower uterine incision was made. The incision was nicked. Amniotic fluid was clear. The incision was opened in the AP diameter. The infant was then delivered from the vertex presentation with clear fluid. Delayed cord clamping was accomplished. The cord was clamped and cut giving the baby to the insurance healthcare representative. Apgars were 9 and 9. Live female. weight 7 pounds 1 ounce. Cord blood was obtained. Placenta delivered manually and intact. Uterus was then exteriorized. Ring forceps were placed on both angles of the inferior margin. Another ring was then used to dilate the cervix. Tubes, ovaries bilaterally were found to be within normal limits. Uterus was closed in a double layer closure with 0 Vicryl suture in a continuous interlocking fashion followed by a second imbricating suture of 0 Vicryl suture. Initial sponge, needle, instrument count were found to be correct. The contents of the pelvic cavity were then irrigated to clear. The uterus was placed back into the normal anatomical position. The uterus was inspected, no active bleeding was noted. The fascia was then reapproximated from both ends using 0 Vicryl suture in a continuous fashion. Subcuticular space was irrigated. Subcuticular space was then closed with 3-0 plain suture and the skin was then reapproximated with 4-0 Monocryl suture. Subcuticular layer was irrigated prior to this. Steri-Strips were then applied along with Telfa and ABD dressing. Final sponge, needle and instrument count were found to be correct. EBL 300 mL, clear urine at the end of the procedure. The patient was then taken to the recovery room in stable condition. I attest to the content of the Intraoperative Record and any orders documented therein. Any exceptions are noted below. MTDD
[2019-10-20 05:59] LABS: Basophils # (auto) 0.02 K/uL (0-0.2); Basophils % (auto) 0.1 %; Eosinophils # (auto) 0.12 K/uL (0-0.5); Eosinophils % (auto) 0.9 %; Hematocrit (blood only) 31.2 % (37-47); Hemoglobin 10.6 g/dL (12.0-16.0); Immature Granulocytes # (auto) 0.05 K/uL (0.00-0.02); Immature Granulocytes % (auto) 0.4 %; Mean Corpuscular Volume 91.2 fL (80-100); Mean Platelet Volume 9.7 fL (7.4-10.4); Monocytes # (auto) 1.03 K/uL (0.11-0.59); Monocytes % (auto) 7.5 %; Neutrophils # (auto) 11.37 K/uL (1.4-6.5); Neutrophils % (auto) 83.1 %; Platelet Count 164 K/uL (130-400); RDW Coefficient of Variation 13.2 % (11.5-14.5); RDW Standard Deviation 43.7 fL (36.4-46.3); Red Blood Count 3.42 M/uL (4.2-5.4); White Blood Count 13.69 K/uL (4.8-10.8)
[2019-10-20] MEDS: OXYCODONE/ACETAMINOPHEN 5mg/325mg TAB PO PRN ×3 (07:49→17:52)
[2019-10-20] MEDS: DOCUSATE SODIUM 100 MG CAP PO SCH ×2 (07:49→20:40)
[2019-10-20] MEDS: SIMETHICONE 80 MG CHEW PO SCH ×4 (07:49→20:40)
[2019-10-20] MEDS: FERROUS SULFATE 325 MG TAB PO SCH (07:50)
--- NOTE | 2019-10-20 08:55 | Obstetrical Progress Note ---
Date of Service October 20, 2019 Assessment & Plan (1) delivery delivered: C/section Day # pt doing well continue day #1 care Subjective Ambulation: ambulating normally Voiding: no voiding problems Passing Gas:: Yes Diet Tolerance:: clear liquids Lochia:: Small Feeding Type:: breast feeding Review of Systems All systems reviewed & are unremarkable except as noted in HPI & below Physical Exam Constitutional WD/WN, vitals as above well developed and well nourished Eyes PERRL, conjunctivae normal, anicteric sclerae ENMT external ear and nose normal, oropharynx normal Neck trachea midline, no thyromegaly Respiratory normal respiratory effort, lungs clear to auscultation Cardiovascular RRR, no murmur, no edema Chest (Breasts) normal inspection/palpation of breasts Gastrointestinal (Abdomen) normal bowel sounds, soft, nontender, no hepatosplenomegaly Musculoskeletal no cyanosis or clubbing, extremities motor strength 5/5 Skin no rashes, warm and dry + incision (Clean,dry and intact) Neurologic patellar DTR's 2+ bilat, sensation intact Psychiatric A+Ox3, euthymic affect Genitourinary normal external appearance Lymphatic no cervical or axillary lymphadenopathy Results & Data Vital Signs (Past 12 Hours) Vital Signs Temp Pulse Resp BP Pulse Ox 10/20/19 04:50 36.6 C 82 17 106/66 100 10/20/19 01:15 36.7 C 74 16 114/71 100 10/20/19 00:30 15 99 10/19/19 23:30 16 100 10/19/19 22:30 17 98 10/19/19 21:30 15 98
[2019-10-20] MEDS: ACETAMINOPHEN 325 MG TAB PO SCH ×2 (10:02→17:50)
[2019-10-20] MEDS: IBUPROFEN 600 MG TAB PO PRN ×2 (13:28→20:40)
[2019-10-20] MEDS ORDERED: bisacodyL 5 MG TABEC PO SCH (20:00)
[2019-10-20] MEDS: PRENATAL VITAMIN 1 TAB PO SCH (20:40)
[2019-10-21] MEDS: ACETAMINOPHEN 325 MG TAB PO SCH (05:38)
[2019-10-21 07:00] LABS: Hematocrit (blood only) 31.4 % (37-47); Hemoglobin 10.4 g/dL (12.0-16.0)
[2019-10-21] MEDS: OXYCODONE/ACETAMINOPHEN 5mg/325mg TAB PO PRN (07:59)
[2019-10-21] MEDS: IBUPROFEN 600 MG TAB PO PRN (08:00)
[2019-10-21] MEDS: DOCUSATE SODIUM 100 MG CAP PO SCH (08:00)
[2019-10-21] MEDS: FERROUS SULFATE 325 MG TAB PO SCH (08:00)
[2019-10-21] MEDS: SIMETHICONE 80 MG CHEW PO SCH (08:00)
[2019-10-21] MEDS ORDERED: bisacodyL 10 MG SUPP PR PRN (08:57)
--- NOTE | 2019-10-21 09:18 | Surgery Progress Note ---
Date of Service October 21, 2019 Subjective POD#2 doing well passing gas tolerating diet out of bed planning to go home Physical Exam Constitutional: WD/WN, vitals as above comfortable abdomen soft and non- tender incision c/d/i no edema neg Marielena's for d/c today Results & Data Vital Signs (Past 12 Hours) Vital Signs Temp Pulse Resp BP Pulse Ox 10/21/19 09:00 36.7 C 98 H 16 119/74 99 10/21/19 00:15 36.7 C 96 H 18 106/68 97 Laboratory Results Laboratory Results - last 72 hr 10/19/19 10/19/19 10/20/19 06:01 06:01 05:41 WBC 10.78 13.69 H RBC 3.85 L 3.42 L Hgb 11.9 L 10.6 L Hct 35.1 L 31.2 L MCV 91.2 91.2 MCH 30.9 31.0 MCHC 33.9 34.0 RDW Std Deviation 43.7 43.7 RDW Coeff of Rosa 13.2 13.2 Plt Count 194 164 MPV 10.0 9.7 Immature Gran % (Auto) 0.5 0.4 Neut % (Auto) 69.8 83.1 Lymph % (Auto) 17.3 8.0 [place] % (Auto) 10.0 7.5 Eos % (Auto) 2.1 0.9 Baso % (Auto) 0.3 0.1 Neut # (Auto) 7.52 H 11.37 H Lymph # (Auto) 1.87 1.10 L [place] # (Auto) 1.08 H 1.03 H Eos # (Auto) 0.23 0.12 Baso # (Auto) 0.03 0.02 Immature Gran # (Auto) 0.05 H 0.05 H Blood Type A Positive Antibody Screen NEGATIVE 10/21/19 06:29 WBC RBC Hgb 10.4 L Hct 31.4 L MCV MCH MCHC RDW Std Deviation RDW Coeff of Rosa Plt Count MPV Immature Gran % (Auto) Neut % (Auto) Lymph % (Auto) [place] % (Auto) Eos % (Auto) Baso % (Auto) Neut # (Auto) Lymph # (Auto) [place] # (Auto) Eos # (Auto) Baso # (Auto) Immature Gran # (Auto) Blood Type Antibody Screen
--- NOTE | 2019-11-02 10:11 | Discharge Summary (DS) ---
REASON FOR ADMISSION AND HOSPITAL COURSE: The patient is a 29-year-old female, para 1-0-0-1 admitted for an elective repeat section. She refused a trial of labor. The patient was identified prior to start of procedure. She was given antibiotics preop. The patient delivered a live female via low transverse section. Apgars were 9 and 9. weight was 7 pounds 1 ounce. Hospital course was unremarkable. The patient was discharged 10/21/2019 in stable condition. Home going instructions were given. CONDITION ON DISCHARGE: Stable. Regular diet on discharge. Medications include Percocet and Motrin for pain. Followup will be in the office in 1 week for an incision check. Hospital course was unremarkable. The patient discharged and will follow up in the office.
== END 2019-10-21 10:35 | disposition home or self-care (01) | DRG 788 ==
LOC: 4S2 05:34 → EDSTATUS 07:30 → 4S2 12:07